=== PATIENT | female | born 1950 | race Caucasian/White ===

== ENCOUNTER 2018-08-28 18:29 | Emergency (ER) | payer OTHER ==
--- NOTE | 2018-08-28 20:58 | ED ---
Lower Extremity - HPI Summary HPI Summary: This patient is a 68 year old F presenting to [facility] with a chief complaint of pain in bottom of left foot since 1 week ago. The patient notes that the pain worsened today and she experienced some swelling in her left foot. The patient rates the pain 3/10 in severity. Symptoms aggravated by nothing. Symptoms alleviated by nothing. Patient denies pain with walking. Pt has xx blood clot in left leg and notes that these symptoms were similar. Hx of plantar fasciitis. Pt takes ASA daily. - History of Current Complaint Chief Complaint: EDExtremityLower Stated Complaint: PAIN IN LEFT LEG/FOOT Time Seen by Provider: 08/28/18 20:46 Hx Obtained From: Patient Mechanism Of Injury: Unknown Onset of Pain: Days - 7 days Onset/Duration: Worse Since - this morning Severity Initially: Mild Severity Currently: Mild Pain Intensity: 3 Pain Scale Used: 0-10 Numeric Timing: Constant Location: Is Discrete @ - bottom of left foot Associated Signs And Symptoms: Positive: Swelling - in left foot Aggravating Factor(s): Nothing Alleviating Factor(s): Nothing Able to Bear Weight: Yes - Allergies/Home Medications Allergies/Adverse Reactions: Allergies Allergy/AdvReac Type Severity Reaction Status Date / Time No Known Allergies Allergy Verified 02/02/13 06:05 PMH/Surg Hx/FS Hx/Imm Hx Endocrine/Hematology History: Denies: Hx Diabetes Cardiovascular History: Reports: Hx Deep Vein Thrombosis - blood clot in left leg - Surgical History Surgery Procedure, Year, and Place: rt RCR Infectious Disease History: No Infectious Disease History: Denies: Traveled Outside the [place] in Last 30 Days - Family History Known Family History: Negative: Diabetes - Social History Substance Use Type: Reports: None Review of Systems Negative: Fever Negative: Epistaxis Negative: Cough Negative: Vomiting Musculoskeletal: Other - pain in bottom of left foot All Other Systems Reviewed And Are Negative: Yes Physical Exam - Summary Physical Exam Summary: VITAL SIGNS: Reviewed. GENERAL: Patient is a well-developed and nourished FEMALE who is lying comfortable in the stretcher. Patient is not in any acute respiratory distress. HEAD AND FACE: No signs of trauma. No ecchymosis, hematomas or skull depressions. No sinus tenderness. EYES: PERRLA, EOMI x 2, No injected conjunctiva, no nystagmus. EARS: Hearing grossly intact. Ear canals and tympanic membranes are within normal limits. MOUTH: Oropharynx within normal limits. NECK: Supple, trachea is midline, no adenopathy, no JVD, no carotid bruit, no c- spine tenderness, neck with full ROM. CHEST: Symmetric, no tenderness at palpation LUNGS: Clear to auscultation bilaterally. No wheezing or crackles. CVS: Regular rate and rhythm, S1 and S2 present, no murmurs or gallops appreciated. ABDOMEN: Soft, non-tender. No signs of distention. No rebound no guarding, and no masses palpated. Bowel sounds are normal. EXTREMITIES: FROM in all major joints, no edema, no cyanosis or clubbing. Left plantar fasciitis NEURO: Alert and oriented x 3. No acute neurological deficits. Speech is normal and follows commands. SKIN: Dry and warm Triage Information Reviewed: Yes Vital Signs On Initial Exam: Initial Vitals Temp Pulse Resp BP Pulse Ox 98.9 F 83 16 161/89 95 08/28/18 18:36 08/28/18 18:36 08/28/18 18:36 08/28/18 18:36 08/28/18 18:36 Vital Signs Reviewed: Yes Diagnostics - Vital Signs Vital Signs Temp Pulse Resp BP Pulse Ox 08/28/18 18:36 98.9 F 83 16 161/89 95 - Laboratory Lab Statement: Any lab studies that have been ordered have been reviewed, and results considered in the medical decision making process. - Additional Comments Diagnostic Additional Comments: VL Lower ext veins left: Interpreted by radiologist. impression: no evidence of DVT in the left leg Dr. Brannon has reviewed this report Lower Extremity Course/Dx - Course Course Of Treatment: This patient is a 68 year old F with hx of blood clots and plantar fasciitis presenting to [facility] with a chief complaint of pain in bottom of left foot since 1 week ago. The patient notes that the pain worsened today and she experienced some swelling in her left foot. VL left lower ext veins reveal, per radiologist, no evidence of DVT in left leg. ED physician has reviewed this radiology report. Patient was encouraged to use orthotics and take NSAIDs for pain. Patient will be discharged with and follow up from PCP. Dx plantar fasciitis. The patient is agreeable with this plan. - Diagnoses Provider Diagnoses: Plantar fasciitis, left Discharge - Sign-Out/Discharge Documenting (check all that apply): Patient Departure - discharge home Patient Received Moderate/Deep Sedation with Procedure: No - Discharge Plan Condition: Stable Disposition: HOME Patient Education Materials: Plantar Fasciitis (ED) Referrals: Vika Lynch MD [Primary Care Provider] - Additional Instructions: Follow up with primary care physician in 2-3 days. Return to the emergency department with any new or worsening symptoms. - Attestation Statements Document Initiated by Scribe: Yes Documenting Scribe: Yue Heller Provider For Whom Scribe is Documenting (Include Credential): Kati Brannon MD Scribe Attestation: Yue Garcia, scribed for Kati Brannon MD on 08/28/18 at 2022. Status of Scribe Document: Ready
[2018-08-28 21:19] VITALS: BP 146/82
== END 2018-08-28 21:18 | disposition home or self-care (01) ==
LOC: ED 18:29
DX: M72.2 Plantar fascial fibromatosis (principal); Z86.718 Personal history of other venous thrombosis and embolism; Z79.01 Long term (current) use of anticoagulants; Z79.82 Long term (current) use of aspirin
CPT/HCPCS: 99282